=== PATIENT | male | born 1970 | race Caucasian/White ===

== ENCOUNTER 2020-06-26 05:30 | Day surgery (SDC) | payer OTHER ==
[2020-06-26] MEDS ORDERED: ULTRAM50 MG PO (09:08)
[2020-06-26] MEDS ORDERED: NEURONTIN300 MG PO (09:08)
[2020-06-26] MEDS ORDERED: TYLENOL ARTHRI650 MG PO (09:08)
[2020-06-26] MEDS ORDERED: MIRALAX17 GM PO (09:08)
== END 2020-06-26 11:40 | disposition home or self-care (01) ==
LOC: CIR.AMB 05:30
PROVIDERS: ATTEND Surgery
DX: K42.0 Umbilical hernia with obstruction, without gangrene (principal); Z20.828 Contact with and (suspected) exposure to other viral communicable diseases

== ENCOUNTER 2023-03-31 08:25 | Outpatient (CLI) | payer OTHER ==
[~2023-03-31 08:25] MED LIST: MIRALAX17 GM PO; NEURONTIN300 MG PO; TYLENOL ARTHRI650 MG PO; ULTRAM50 MG PO
== END 2023-03-31 08:44 | disposition home or self-care (01) ==
LOC: MRI 08:25
DX: I61.8 Other nontraumatic intracerebral hemorrhage (principal)
CPT/HCPCS: 70553

== ENCOUNTER 2023-04-01 10:10 | Outpatient (CLI) | payer OTHER | END 2023-04-01 10:12 | disposition home or self-care (01) | LOC: LAB 10:10 | DX: D64.9 Anemia, unspecified (principal); G89.29 Other chronic pain; E55.9 Vitamin D deficiency, unspecified; D50.8 Other iron deficiency anemias; D51.1 Vitamin B12 deficiency anemia due to selective vitamin B12 malabsorption with proteinuria; D51.3 Other dietary vitamin B12 deficiency anemia; D52.0 Dietary folate deficiency anemia; K59.00 Constipation, unspecified; C61 Malignant neoplasm of prostate; D40.0 Neoplasm of uncertain behavior of prostate; E78.9 Disorder of lipoprotein metabolism, unspecified; D41.9 Neoplasm of uncertain behavior of unspecified urinary organ; D13.9 Benign neoplasm of ill-defined sites within the digestive system; E11.65 Type 2 diabetes mellitus with hyperglycemia; Z79.01 Long term (current) use of anticoagulants; Z11.3 Encounter for screening for infections with a predominantly sexual mode of transmission; Z13.228 Encounter for screening for other metabolic disorders; Z01.89 Encounter for other specified special examinations; Z12.11 Encounter for screening for malignant neoplasm of colon; E10.9 Type 1 diabetes mellitus without complications; E03.9 Hypothyroidism, unspecified; D69.9 Hemorrhagic condition, unspecified; M10.9 Gout, unspecified; J30.0 Vasomotor rhinitis; R97.8 Other abnormal tumor markers; Z85.46 Personal history of malignant neoplasm of prostate; N39.0 Urinary tract infection, site not specified; I25.10 Atherosclerotic heart disease of native coronary artery without angina pectoris; I25.119 Atherosclerotic heart disease of native coronary artery with unspecified angina pectoris; I25.700 Atherosclerosis of coronary artery bypass graft(s), unspecified, with unstable angina pectoris; I25.799 Atherosclerosis of other coronary artery bypass graft(s) with unspecified angina pectoris; Z13.6 Encounter for screening for cardiovascular disorders; J45.40 Moderate persistent asthma, uncomplicated; R30.0 Dysuria; R35.0 Frequency of micturition; R39.15 Urgency of urination; R82.89 Other abnormal findings on cytological and histological examination of urine ==